=== PATIENT | male | born 1950 ===

== ENCOUNTER → 2018-07-22 | Day surgery (SDC) | payer OTHER | END | disposition home or self-care (01) | LOC: ADM 07-19 15:15 → AMB-ENDOS 07:34 → ADM 15:15 → AMB-ENDOS 15:15 | DX: K57.32 Diverticulitis of large intestine without perforation or abscess without bleeding (principal); K62.4 Stenosis of anus and rectum ==

== ENCOUNTER 2018-07-29 15:57 | Inpatient (IN) | payer OTHER ==
[~2018-07-29] VITALS: Ht 154.9 cm; Wt 67.1 kg
[2018-08-23] MEDS ORDERED: TYLENOL EXTRA500 MG PO (14:50)
[2018-08-23] MEDS ORDERED: INTESTINEX680 M1 PO (14:51)
[2018-08-23] MEDS ORDERED: OMEPRAZOLE20 MG PO (14:51)
== END 2018-08-23 16:25 | disposition home or self-care (01) | DRG 331 ==
LOC: EDSTATUS 08-15 15:30 → ADM 08-15 15:30 → SURH 08-20 06:15 → O/R 08-20 06:15 → SURH 08-20 15:26
PROVIDERS: ADMIT Surgery
PROC: 0DJD8ZZ Inspection of Lower Intestinal Tract, Via Natural or Artificial Opening Endoscopic (ICD-10-PCS; 2018-08-20)
PROC: 0DTN4ZZ Resection of Sigmoid Colon, Percutaneous Endoscopic Approach (ICD-10-PCS; principal; 2018-08-20 16:45)
DX: K57.32 Diverticulitis of large intestine without perforation or abscess without bleeding (principal); I10 Essential (primary) hypertension

== ENCOUNTER → 2018-08-20 06:40 | Outpatient (CLI) | payer OTHER ==
[~2018-08-20 06:40] MED LIST: INTESTINEX680 M1 PO; OMEPRAZOLE20 MG PO; TYLENOL EXTRA500 MG PO
== END | disposition home or self-care (01) ==
LOC: LAB 06:40
DX: E87.0 Hyperosmolality and hypernatremia (principal)

== ENCOUNTER 2019-09-22 06:07 | Day surgery (SDC) | payer OTHER | END 2019-09-22 10:25 | disposition home or self-care (01) | LOC: AMB-ENDOS 06:07 | PROVIDERS: ATTEND Surgery | DX: K57.32 Diverticulitis of large intestine without perforation or abscess without bleeding (principal); K64.0 First degree hemorrhoids ==

== ENCOUNTER → 2021-08-12 14:36 | Outpatient (CLI) | payer OTHER | END | disposition home or self-care (01) | LOC: LAB 14:36 | PROVIDERS: ATTEND Urology | DX: R97.20 Elevated prostate specific antigen [PSA] (principal) ==

== ENCOUNTER 2021-08-26 07:03 | Outpatient (CLI) | payer OTHER ==
[2021-08-26] MEDS ORDERED: LOSARTAN POTASS50 MG PO (08:52)
== END 2021-08-26 07:13 | disposition home or self-care (01) ==
LOC: SONOGRAMA 07:03
PROVIDERS: ATTEND Urology
DX: R97.20 Elevated prostate specific antigen [PSA] (principal)

== ENCOUNTER 2021-08-26 08:24 | Inpatient (IN) | payer OTHER ==
[~2021-08-26] VITALS: Ht 180.3 cm; Wt 77.1 kg
[2021-08-26] MEDS ORDERED: LOSARTAN POTASS50 MG PO (08:52)
--- NOTE | 2021-08-26 08:53 | NUR ---
PTE ALERTA Y ORIENTADA POR PHUC ESFERAS CON BUEN PATRON RESPIRATORIO. REFIERE QUE VIENE POR REFERIDO MEDICO DE DR.EDUARDO ALMANZA.
== END 2021-08-27 22:28 | disposition home or self-care (01) | DRG 868 ==
LOC: ER 08:24 → SEC-K 09:31 → SURH 09:31
PROVIDERS: ADMIT Urology; ATTEND Urology
DX: A48.8 Other specified bacterial diseases (principal); Z16.12 Extended spectrum beta lactamase (ESBL) resistance; Z20.822 Contact with and (suspected) exposure to COVID-19; B96.29 Other Escherichia coli [E. coli] as the cause of diseases classified elsewhere

== ENCOUNTER 2021-11-25 16:38 | Inpatient (IN) | payer OTHER ==
[~2021-11-25] VITALS: Ht 154.9 cm; Wt 71.7 kg
[~2021-11-25 16:38] MED LIST changes: +LOSARTAN POTASS50 MG PO
== END 2021-12-04 15:14 | disposition home or self-care (01) | DRG 707 ==
LOC: O/R 12-02 05:30 → SURH 12-02 05:30 → SURG 12-02 07:00 → SURH 12-02 12:33
PROVIDERS: ADMIT Urology; ATTEND Urology
PROC: 07BC0ZX Excision of Pelvis Lymphatic, Open Approach, Diagnostic (ICD-10-PCS; 2021-12-02)
PROC: 0VT00ZZ Resection of Prostate, Open Approach (ICD-10-PCS; principal; 2021-12-02 07:00)
DX: C61 Malignant neoplasm of prostate (principal); D62 Acute posthemorrhagic anemia; R59.0 Localized enlarged lymph nodes; Z20.822 Contact with and (suspected) exposure to COVID-19; I10 Essential (primary) hypertension

== ENCOUNTER 2021-12-14 18:36 | Inpatient (IN) | payer OTHER ==
[~2021-12-14] VITALS: Ht 152.4 cm; Wt 90.7 kg
--- NOTE | 2021-12-14 18:58 | NUR ---
SE RECIBE MASCULINO ALERTA Y ORIENTADO POR PHUC ESFERAS, EN AMBULANCIA. TRANFERIDO DE [facility]. PACIENTE POST OPERADO DE DR. ALMANZA PRESENTANDO HIPOTENCION Y SOSPECHA DE SEPSIS. SE RECIBE CANALIZADO X2 EN BRAZO DERECHO CON AREA DE VENOPUNCIONES LIBRES DE EDEMA O ENROJECIMIENTO. RECIBIENDO DOPAMINA 400MG @ 3ML/HR. Y 0.9% NSS @ 100 ML/HR. SE UBICA EN AREA DE CRITICO.
--- NOTE | 2021-12-14 19:15 | NUR ---
SE OBSERVA DRENAJE TOMÁS EN AREA PELVICA IZQUIERDA DREANANDO 15 ML DE FLUIDO SANGUNINOLENTO. SE REALIZA EKG Y SE PRESENTA A DR. ARREDONDO.
--- NOTE | 2021-12-14 19:50 | NUR ---
PTE ALERTA Y ORIENTADO X3. SE ADMINISTRAN MEDICAMENTOS HARIS ORDEN MEDICAS, LEVOPHED 8MG/250 DW5% DRIP A 10 ML/HR, Y 0.9NSS A 120 ML/HR. SE RHONDA MUESTRAS DE LILLY Y SE ENVIAN A LABORATORIO. PACIENTE LLEGA CON MCQUEEN COLOCADO EL RE 2021. SE CAMBIA EL COLECTOR DE ORINA DEL MCQUEEN. SE CONECTA A MONITOR CARDIADO.
--- NOTE | 2021-12-14 21:24 | NUR ---
SE OBSERVA REACCION ALERGICA EN PTE MIENTRAS RECIBE TX MEDICO. SE D/C ZOSYN A PTE Y SE NOTIFICA A MD DE ER. SE COLOCA SOLUMEDROL 125MG Y BENADRYL 50MG IV PUSH CON CN A 3LTS Y [place]. PTE SE ESTABILIZA Y SE DOCUMENTA REACCION ALERGICA EN SISTEMA.
[2021-12-19] MEDS ORDERED: OXYBUTYNIN CHLO10 MG (13:26)
[2021-12-24] MEDS ORDERED: INTESTINEX680 M1 PO (18:31)
[2021-12-24] MEDS ORDERED: TAMS0.4C PO (18:31)
[2021-12-24] MEDS ORDERED: INTEGRA PLUS C1 EACH PO (18:31)
== END 2021-12-25 09:20 | disposition home or self-care (01) | DRG 871 ==
LOC: ER 18:36 → ICU-2 21:57 → MEDJ 12-17 12:43
PROVIDERS: ADMIT Internal Medicine; ATTEND Internal Medicine
PROC: B24BZZZ Ultrasonography of Heart with Aorta (ICD-10-PCS; 2021-12-14)
PROC: 02HV33Z Insertion of Infusion Device into Superior Vena Cava, Percutaneous Approach (ICD-10-PCS; principal; 2021-12-20)
DX: A41.9 Sepsis, unspecified organism (principal); R65.21 Severe sepsis with septic shock; N39.0 Urinary tract infection, site not specified; N17.8 Other acute kidney failure; Z16.12 Extended spectrum beta lactamase (ESBL) resistance; K57.30 Diverticulosis of large intestine without perforation or abscess without bleeding; B96.89 Other specified bacterial agents as the cause of diseases classified elsewhere; B96.20 Unspecified Escherichia coli [E. coli] as the cause of diseases classified elsewhere; C61 Malignant neoplasm of prostate; Z20.822 Contact with and (suspected) exposure to COVID-19